=== PATIENT | female | born 1975 | race Two or more races ===

== ENCOUNTER 2016-09-14 14:08 | Observation (INO) | payer OTHER ==
[~2016-09-14] VITALS: Ht 170.2 cm; Wt 94.3 kg
[~2016-09-14 14:08] MED LIST: ALDOMET500 MG PO; BENTYL10 MG PO; BENTYL20 MG PO; CHILDREN'S ASPI81 M1 PO; CLEOCIN300 MG PO; ENDOCET 5-3251 EACH PO; HYDROCODON-ACE1 EAC7 PO; KEFLEX500 MG PO; LISINOPRIL10 MG PO; LISINOPRIL20 MG PO; LITE COAT ASPI325 M1 PO; MOTRIN400 MG PO; Motrin PO; OXYCODONE-ACET1 EACH PO; PERCOCET 5/31 TABLET PO; Procardia XL,Adalat PO; REGLAN10 MG PO; TOPROL XL50 MG PO; ULTRAM50 MG PO; ZESTORETIC 20-1 EAC2 PO; ZOFRAN ODT4 MG PO; ZOFRAN4 MG PO
[2016-09-14 15:07] LABS: HEMATOCRIT 33.6 % (36.0-46.0); MCH 22.2 PG (29.0-34.0); MCHC 30.4 G/DL (30.0-36.0); RBC DIS.WIDTH-SD 49 % (39-53); WHITE BLOOD COUNT 11.2 K/uL (4.1-10.2)
[2016-09-14 15:08] LABS: RBC DIS.WIDTH-CV 19.1 % (11.8-14.6)
[2016-09-14 15:11] LABS: CHLORIDE 106 mEq/L (99-109); POTASSIUM 3.5 mEq/L (3.7-5.4); SODIUM 138 mEq/L (136-147)
[2016-09-14 15:13] LABS: GLUCOSE 110 mg/dL (70-99)
[2016-09-14 15:14] LABS: ANION GAP 10 MEQ/L (2-14)
[2016-09-14 15:15] LABS: TOTAL BILIRUBIN 0.4 mg/dL (0.0-1.0)
[2016-09-14 15:16] LABS: ALKALINE PHOSPHATASE 111 IU/L (3-129)
[2016-09-14 15:17] LABS: GFR ESTIMATE (CALCULATED) > 59 mL/min/
[2016-09-14 15:18] LABS: UREA NITROGEN (BUN) 9 mg/dL (9-23)
[2016-09-14 15:20] LABS: LIPASE 34 U/L (1.0-51.0)
[2016-09-14 15:26] LABS: TROP-I INTERPRETATION NEGATIVE; TROPONIN-I < 0.01 ng/mL (0.0-0.30)
[2016-09-14 15:27] LABS: QUANTITATIVE HCG < 4.0 MIU/ML
[2016-09-14 15:42] LABS: BASOPHIL COUNT 0.1 K/uL (0-0.1); EOSINOPHIL COUNT 0.1 K/uL (0-0.3); HEMATOLOGY COMMENT 1 SMEAR COMPATIBLE; IMMATURE GRANULOCYTE (%) 0.2 % (0.0-0.7); IMMATURE GRANULOCYTE COUNT 0.2 K/uL; LARGE PLATELETS OCC; LYMPHOCYTE COUNT 2.7 K/uL (1.0-2.8); MONOCYTE (%) 6.4 % (3-12); MONOCYTE COUNT 0.7 K/uL (0-0.8); NEUTROPHIL (%) 67.4 % (45-76); NEUTROPHIL COUNT 7.5 K/uL (1.8-6.4); PLAT.SUFFICIENCY NORMAL; PLATELET COUNT 200 K/uL (156-360); USER ID NJV
[2016-09-14] MEDS ORDERED: CHILDREN'S ASPI81 M1 PO (17:01)
[2016-09-14] MEDS ORDERED: ZANAFLEX4 M1 PO (17:02)
[2016-09-14] MEDS ORDERED: MOTRIN IB200 MG PO (17:03)
[2016-09-14 19:58] VITALS: BP 132/88
== END 2016-09-14 19:53 | disposition left against medical advice (07) ==
LOC: EME 14:08 → EDOF 19:31
PROVIDERS: Physician Assistant
DX: R07.89 Other chest pain (principal); R10.13 Epigastric pain; Z91.19 Patient's noncompliance with other medical treatment and regimen; I10 Essential (primary) hypertension; G43.909 Migraine, unspecified, not intractable, without status migrainosus; F17.200 Nicotine dependence, unspecified, uncomplicated
CPT/HCPCS: 71020; 80053; 81003; 83690; 84484; 84702; 85025; 93005; 99281; 99285; G0378; J2270; J2405; J3010; J7030

== ENCOUNTER 2016-09-16 04:28 | Emergency (ER) | payer OTHER ==
[~2016-09-16] VITALS: Ht 170.2 cm; Wt 95.4 kg
[~2016-09-16 04:28] MED LIST changes: +MOTRIN IB200 MG PO; +ZANAFLEX4 M1 PO
[2016-09-16 04:59] LABS: BASOPHIL COUNT 0.1 K/uL (0-0.1); EOSINOPHIL (%) 1.1 % (0-5); EOSINOPHIL COUNT 0.1 K/uL (0-0.3); IMMATURE GRANULOCYTE (%) 0.1 % (0.0-0.7); IMMATURE GRANULOCYTE COUNT 0.1 K/uL; LYMPHOCYTE COUNT 2.8 K/uL (1.0-2.8); MONOCYTE (%) 6.9 % (3-12); MONOCYTE COUNT 0.8 K/uL (0-0.8); NEUTROPHIL (%) 66.4 % (45-76); NEUTROPHIL COUNT 7.5 K/uL (1.8-6.4)
[2016-09-16 05:06] LABS: CHLORIDE 106 mEq/L (99-109); POTASSIUM 3.7 mEq/L (3.7-5.4); SODIUM 138 mEq/L (136-147)
[2016-09-16 05:08] LABS: GLUCOSE 100 mg/dL (70-99)
[2016-09-16 05:09] LABS: ANION GAP 7 MEQ/L (2-14)
[2016-09-16 05:11] LABS: ALKALINE PHOSPHATASE 109 IU/L (3-129)
[2016-09-16 05:12] LABS: GFR ESTIMATE (CALCULATED) > 59 mL/min/; TOTAL BILIRUBIN 0.3 mg/dL (0.0-1.0)
[2016-09-16 05:13] LABS: DIRECT BILIRUBIN 0.2 mg/dL (0.0-0.3); UREA NITROGEN (BUN) 9 mg/dL (9-23)
[2016-09-16 05:15] LABS: LIPASE 95 U/L (1.0-51.0)
[2016-09-16 05:18] LABS: TROP-I INTERPRETATION NEGATIVE; TROPONIN-I < 0.01 ng/mL (0.0-0.30)
[2016-09-16 05:46] LABS: HEMATOCRIT 33.2 % (36.0-46.0); MCH 22.6 PG (29.0-34.0); MCHC 30.7 G/DL (30.0-36.0); MCV 73.5 FL (83-99); RBC DIS.WIDTH-CV 18.9 % (11.8-14.6); RBC DIS.WIDTH-SD 48.8 % (39-53); RED BLOOD COUNT 4.52 M/uL (3.80-5.20); WHITE BLOOD COUNT 11.2 K/uL (4.1-10.2)
[2016-09-16 06:01] LABS: HEMATOLOGY COMMENT 1 REV; PLAT.SUFFICIENCY ADEQUATE; PLATELET COUNT 201 K/uL (156-360)
[2016-09-16] MEDS ORDERED: PERCOCET 5/31 TABLET PO (06:30)
[2016-09-16 06:50] VITALS: BP 158/97
[2016-09-17] MEDS ORDERED: TOPROL XL25 MG PO (12:05)
[2016-09-17] MEDS ORDERED: ZOFRAN4 MG PO (12:07)
[2016-09-17] MEDS ORDERED: PERCOCET 5/31 TABLET PO (12:08)
== END 2016-09-16 07:29 | disposition home or self-care (01) ==
LOC: EME 04:28
PROVIDERS: Emergency Medicine
DX: K85.90 Acute pancreatitis without necrosis or infection, unspecified (principal); I10 Essential (primary) hypertension; Z91.14 Patient's other noncompliance with medication regimen; F17.200 Nicotine dependence, unspecified, uncomplicated
CPT/HCPCS: 71010; 74177; 80048; 80076; 83690; 84484; 85025; 93005; 99281; 99285; J2270; J2405; J7030

== ENCOUNTER 2016-09-16 20:00 | Observation (INO) | payer OTHER ==
[~2016-09-16] VITALS: Ht 170.2 cm; Wt 95.0 kg
[2016-09-16 21:04] LABS: CHLORIDE 105 mEq/L (99-109); POTASSIUM 3.6 mEq/L (3.7-5.4); SODIUM 138 mEq/L (136-147)
[2016-09-16 21:06] LABS: GLUCOSE 98 mg/dL (70-99)
[2016-09-16 21:08] LABS: ANION GAP 8 MEQ/L (2-14); TOTAL BILIRUBIN 0.3 mg/dL (0.0-1.0)
[2016-09-16 21:09] LABS: HEMATOCRIT 34.3 % (36.0-46.0); MCH 22.6 PG (29.0-34.0); MCHC 30.9 G/DL (30.0-36.0); MCV 73.1 FL (83-99); RBC DIS.WIDTH-CV 18.9 % (11.8-14.6); RBC DIS.WIDTH-SD 48.8 % (39-53); RED BLOOD COUNT 4.69 M/uL (3.80-5.20); WHITE BLOOD COUNT 9.9 K/uL (4.1-10.2)
[2016-09-16 21:10] LABS: ALKALINE PHOSPHATASE 129 IU/L (3-129); GFR ESTIMATE (CALCULATED) > 59 mL/min/
[2016-09-16 21:11] LABS: UREA NITROGEN (BUN) 6 mg/dL (9-23)
[2016-09-16 21:12] LABS: ADD MIUA? YES; BILIRUBIN NEGATIVE; BLOOD NEGATIVE; COLOR YELLOW ((YELLOW)); GLUCOSE (STRIP) NEGATIVE; KETONES NEGATIVE; LEUKOCYTES TRACE; NITRITE NEGATIVE; PROTEIN (STRIP) NEGATIVE; SPECIFIC GRAVITY 1.025 (1.000-1.030)
[2016-09-16 21:13] LABS: LIPASE 156 U/L (1.0-51.0)
[2016-09-16 21:21] LABS: QUANTITATIVE HCG < 4.0 MIU/ML
[2016-09-16 21:52] LABS: HEMATOLOGY COMMENT 1 SMEAR COMPATIBLE; PLATELET COUNT 202 K/uL (156-360)
[2016-09-16 21:57] LABS: BACTERIA NONE SEEN /HPF; EPITHELIAL CELLS 1+ /HPF; MUCUS 1+ /LPF; RED BLOOD CELLS 0-5 /HPF (0-5); UCUL ADDED? NO; WHITE BLOOD CELLS 0-5 /HPF (0-5)
[2016-09-17 01:56] VITALS: BP 146/89
[2016-09-17] MEDS ORDERED: TOPROL XL25 MG PO (12:05)
[2016-09-17] MEDS ORDERED: ZOFRAN4 MG PO (12:07)
[2016-09-17] MEDS ORDERED: PERCOCET 5/31 TABLET PO (12:08)
== END 2016-09-17 01:50 | disposition left against medical advice (07) ==
LOC: EME 20:00 → EDOF 09-17 00:56
DX: R10.13 Epigastric pain (principal); R11.0 Nausea; K27.9 Peptic ulcer, site unspecified, unspecified as acute or chronic, without hemorrhage or perforation; I10 Essential (primary) hypertension; Z91.19 Patient's noncompliance with other medical treatment and regimen; E66.9 Obesity, unspecified; F17.200 Nicotine dependence, unspecified, uncomplicated
CPT/HCPCS: 80053; 81003; 83690; 84702; 85027; 99281; 99285; C9113; G0378; J1885; J2270; J2405; J7030

== ENCOUNTER → 2016-09-18 | Outpatient (CLI) | payer OTHER ==
[~2016-09-18] VITALS: Ht 170.2 cm; Wt 90.7 kg
[~2016-09-18] MED LIST changes: +TOPROL XL25 MG PO
== END | disposition home or self-care (01) ==
LOC: AMB 08-29 11:30
PROC: 0DB78ZX Excision of Stomach, Pylorus, Via Natural or Artificial Opening Endoscopic, Diagnostic (ICD-10-PCS; principal; 2016-09-18)
DX: K29.70 Gastritis, unspecified, without bleeding (principal); K29.80 Duodenitis without bleeding; K26.9 Duodenal ulcer, unspecified as acute or chronic, without hemorrhage or perforation; R10.11 Right upper quadrant pain; R79.89 Other specified abnormal findings of blood chemistry; R11.2 Nausea with vomiting, unspecified; D50.9 Iron deficiency anemia, unspecified; Z82.49 Family history of ischemic heart disease and other diseases of the circulatory system; F17.200 Nicotine dependence, unspecified, uncomplicated; Z79.82 Long term (current) use of aspirin; Z88.0 Allergy status to penicillin; Z88.8 Allergy status to other drugs, medicaments and biological substances
CPT/HCPCS: 88305; 88342 TC; C1726; J0330; J1100; J2250; J2405; J3010

== ENCOUNTER 2017-03-16 06:30 | Emergency (ER) | payer OTHER ==
[~2017-03-16] VITALS: Ht 170.2 cm; Wt 92.4 kg
[2017-03-16 06:37] VITALS: BP 168/124
[2017-03-16] MEDS ORDERED: ULTRAM50 MG PO (06:51)
[2017-03-16] MEDS ORDERED: MOTRIN800 MG PO (06:51)
[2017-03-16] MEDS ORDERED: CLEOCIN300 MG PO (06:51)
== END 2017-03-16 07:08 | disposition home or self-care (01) ==
LOC: EME 06:30
DX: K02.9 Dental caries, unspecified (principal); R22.0 Localized swelling, mass and lump, head; F17.200 Nicotine dependence, unspecified, uncomplicated; I10 Essential (primary) hypertension; Z79.82 Long term (current) use of aspirin
CPT/HCPCS: 99281; 99283

== ENCOUNTER 2017-06-20 12:57 | Emergency (ER) | payer OTHER ==
[~2017-06-20] VITALS: Ht 170.2 cm; Wt 95.4 kg
[~2017-06-20 12:57] MED LIST changes: +MOTRIN800 MG PO
[2017-06-20 13:24] VITALS: BP 198/100
[2017-06-20 15:23] LABS: ADD MIUA? YES; BILIRUBIN NEGATIVE; BLOOD NEGATIVE; COLOR YELLOW ((YELLOW)); GLUCOSE (STRIP) NEGATIVE; KETONES NEGATIVE; LEUKOCYTES MODERATE; NITRITE NEGATIVE; PROTEIN (STRIP) NEGATIVE; SPECIFIC GRAVITY 1.008 (1.000-1.030); UROBILINOGEN 0.2 MG/DL (0.2-1.0)
[2017-06-20 15:27] LABS: BACTERIA RARE /HPF; CALCIUM OXALATE CRYSTALS 1+ /HPF; EPITHELIAL CELLS RARE /HPF; MUCUS TRACE /LPF; RED BLOOD CELLS 0-5 /HPF (0-5); WHITE BLOOD CELLS 15-20 /HPF (0-5)
[2017-06-20] MEDS ORDERED: PREDNISONE5 M1 PO (15:55)
== END 2017-06-20 16:09 | disposition home or self-care (01) ==
LOC: EME 12:57
PROVIDERS: Physician Assistant
DX: M54.5 Low back pain (principal); I10 Essential (primary) hypertension; E78.5 Hyperlipidemia, unspecified; F17.200 Nicotine dependence, unspecified, uncomplicated; Z90.49 Acquired absence of other specified parts of digestive tract; Z88.0 Allergy status to penicillin; Z88.8 Allergy status to other drugs, medicaments and biological substances
CPT/HCPCS: 81003; 87086; 99281; 99283

== ENCOUNTER → 2017-10-29 | Outpatient (CLI) | payer OTHER ==
[~2017-10-29] VITALS: Ht 170.2 cm; Wt 95.2 kg
[~2017-10-29] MED LIST changes: +MORGIDOX100 MG PO; +NEURONTIN100 MG PO; +PREDNISONE5 M1 PO; +PROTONIX40 MG PO
[2017-10-29 09:48] LABS: CHLORIDE 105 MEQ/L (99-109); CREATININE 0.9 MG/DL (0.6-1.3); GFR ESTIMATE (CALCULATED) > 59 mL/min/; GLUCOSE 100 mg/dL (70-99); POTASSIUM 3.9 MEQ/L (3.7-5.4); SODIUM 135 MEQ/L (136-147); UREA NITROGEN (BUN) 11 mg/dL (9-23)
== END | disposition home or self-care (01) ==
LOC: AMB 08:25
PROVIDERS: Anesthesiology
PROC: 0F798ZZ Dilation of Common Bile Duct, Via Natural or Artificial Opening Endoscopic (ICD-10-PCS; principal; 2017-10-29)
DX: K83.1 Obstruction of bile duct (principal); K86.1 Other chronic pancreatitis; R10.13 Epigastric pain; R11.2 Nausea with vomiting, unspecified; K83.4 Spasm of sphincter of Oddi; I10 Essential (primary) hypertension; D60.9 Acquired pure red cell aplasia, unspecified; Z90.49 Acquired absence of other specified parts of digestive tract; Z88.0 Allergy status to penicillin
CPT/HCPCS: 74328; 80048; 87081; 93005; C1757; C1769; J2250; J3010

== ENCOUNTER 2017-11-11 12:39 | Day surgery (SDC) | payer OTHER ==
[~2017-11-11] VITALS: Ht 170.2 cm; Wt 90.7 kg
[~2017-11-11 12:39] MED LIST changes: +INDOCIN50 M1 PR; +TOPROL XL100 MG PO; -TOPROL XL25 MG PO; +ZANAFLEX2 MG PO; -ZANAFLEX4 M1 PO
== END 2017-11-11 14:25 | disposition home or self-care (01) ==
LOC: PAIN 12:39 → SDC 13:15 → PAIN 13:15
PROC: 3E0S33Z Introduction of Anti-inflammatory into Epidural Space, Percutaneous Approach (ICD-10-PCS; principal; 2017-11-11)
PROC: B01B1ZZ Fluoroscopy of Spinal Cord using Low Osmolar Contrast (ICD-10-PCS; principal; 2017-11-11)
DX: M54.16 Radiculopathy, lumbar region (principal); M51.26 Other intervertebral disc displacement, lumbar region; M48.061 Spinal stenosis, lumbar region without neurogenic claudication; F17.200 Nicotine dependence, unspecified, uncomplicated; K83.4 Spasm of sphincter of Oddi; I10 Essential (primary) hypertension; D50.9 Iron deficiency anemia, unspecified
CPT/HCPCS: J1100; J2250